=== PATIENT | female | born 1995 | race Two or more races ===

== ENCOUNTER → 2018-07-13 | Outpatient (REF) | payer OTHER ==
[2018-07-13 22:38] LABS: CHLAMYDIA DNA AMPLIFICATION NEGATIVE (NEGATIVE); GC DNA AMPLIFICATION NEGATIVE (NEGATIVE)
== END ==
LOC: M SFHCLERA 18:10
PROVIDERS: ATTEND Physician Assistant
DX: N89.8 Other specified noninflammatory disorders of vagina (principal)

== ENCOUNTER 2018-08-26 16:06 | Emergency (ER) | payer OTHER ==
[~2018-08-26] VITALS: Ht 160 cm; Wt 55.5 kg
[2018-08-26] MEDS ORDERED: PRENTAB29 (16:12)
[2018-08-26] MEDS ORDERED: STOO100C PO (16:32)
[2018-08-26] MEDS ORDERED: ACETAMINOPHEN TAB 650MG DOSE (2X325MG) PO ONE (16:45)
[2018-08-26] MEDS ORDERED: NS 1,000 ML IV ONE (16:45)
[2018-08-26 17:28] LABS: BASO # 0.1 10^3/uL (0.0-0.2); BASO % 0.6 % (0.0-1.0); EOS # 0.3 10^3/uL (0.0-0.50); EOS % 2.7 % (0.0-3.0); HEMATOCRIT 40.7 % (36.0-47.0); HEMOGLOBIN 13.7 g/dl (12.0-15.5); LYMPH # 2.2 10^3/uL (1.5-6.5); LYMPH % 20.3 % (24.0-44.0); MEAN CORPUSCULAR HEMOGLOBIN 30.4 pg (27.0-33.0); MEAN CORPUSCULAR HGB CONC 33.7 g/dl (32.0-36.5); MEAN CORPUSCULAR VOLUME 90.2 fl (80.0-96.0); MONO # 0.5 10^3/uL (0.0-0.8); MONO % 4.3 % (0.0-5.0); NEUTROPHILS # 7.9 10^3/uL (1.8-7.7); NEUTROPHILS % 71.7 % (36.0-66.0); PLATELET COUNT, AUTOMATED 253 10^3/uL (150-450); RED BLOOD COUNT 4.51 10^6/uL (4.00-5.40)
--- NOTE | 2018-08-26 17:33 | REP ---
FIRST TRIMESTER ULTRASOUND: Real-time sonographic evaluation of the gravid uterus performed. There is a single living intrauterine gestation, estimated gestational age 7 weeks 2 days based on a crown rump length of 11 mm. EDC 04/12/2019. heart rate 153 beats per minute. There is no subchorionic hemorrhage. No maternal adnexal region abnormality is seen. Electronically Signed by Jared Dallas MD 08/27/2018 12:53 P
[2018-08-26 18:11] LABS: BLOOD UREA NITROGEN 9 MG/DL (7-18); CALCIUM LEVEL 8.3 MG/DL (8.5-10.1); CARBON DIOXIDE LEVEL 28 MEQ/L (21-32); CHLORIDE LEVEL 106 MEQ/L (98-107); CREATININE FOR GFR 0.52 MG/DL (0.55-1.30); GLOMERULAR FILTRATION RATE > 60.0 (>60); GLUCOSE, FASTING 82 MG/DL (70-100); HCG, SERUM QUANTITATIVE 29797 MIU/ML; POTASSIUM SERUM 3.8 MEQ/L (3.5-5.1); SODIUM LEVEL 138 MEQ/L (136-145)
[2018-08-26 19:06] VITALS: BP 106/63
== END 2018-08-26 19:08 | disposition home or self-care (01) ==
LOC: M ED 16:06
DX: O26.891 Other specified pregnancy related conditions, first trimester (principal); R10.2 Pelvic and perineal pain; O99.511 Diseases of the respiratory system complicating pregnancy, first trimester; J45.909 Unspecified asthma, uncomplicated; Z3A.01 Less than 8 weeks gestation of pregnancy

== ENCOUNTER 2019-04-09 08:13 | Inpatient (IN) | payer OTHER ==
[2019-04-09] VITALS (26 sets, daily range): BP systolic 68–137; BP diastolic 34–82
[~2019-04-09] VITALS: Ht 160 cm; Wt 75.8 kg
[~2019-04-09 08:13] MED LIST: MM S100C PO; PRENTAB29
[2019-04-09] MEDS ORDERED: LR 1,000 ML IV SCH (09:07)
[2019-04-09] MEDS ORDERED: LACTATED RINGER'S 1000 ML IV STA (09:07)
[2019-04-09] MEDS ORDERED: MAPA500T2 PO (09:07)
[2019-04-09] MEDS ORDERED: VALT500T PO (09:07)
--- NOTE | 2019-04-09 09:25 | HPEPDOC ---
Obstetrical History & Physical General Date of Admission Apr 09, 2019 at 08:50 History of Present Illness Alla is a 24yo with SIUP at 40w0d by lmp c/w 8wk u/s presenting with regular, painful ctx since 0300 this morning. After arrival she had LOF, clear, around 0830. Good movement. No vaginal bleeding. No f/c/n/v/SOB/CP. 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: Herpes simplex virus(HSV) Past Medical History Medical History Mild intermittent asthma with prn albuterol use Surgical History: [place] teeth Family History Significant Family History: No pertinent family hx Social History Marital Status: Family situation: Spouse/partner home Psychosocial History: No pertinent psych hx * Smoker: non-smoker Alcohol: Denies Drugs: denies Imunizations Tdap status: current Influenza Status: current Allergies Coded Allergies: No Known Allergies (Unverified , 08/26/18) Medications Scheduled Valacyclovir HCl (Valtrex) 500 Mg Tablet, 500 MG PO DAILY Miscellaneous Medications Acetaminophen (Mapap) 500 Mg Tablet, 1,000 MG PO Physical Examination Physical Examination GENERAL: Alert and oriented times three. ABDOMEN: Gravid and non-tender to touch. 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): external and internal exam reveal NO HSV lesions, pooling of clear fluid, hair observed through cervix Laboratory Data 24H LABS Laboratory Tests 2 04/09/19 09:00: Serology Scanned Report Hepatitis B Testing Pertinent Laboratoy Data Blood Type: O+ RBC Antibody Screen: Negative HIV: Negative Hepatitis B: Negative Hepatitis C: Unknown Rapid Plasma Reagin: Nonreactive Rubella: Immune Varicella: Immune Chlamydia/Gonorrhea: Negative Group B Streptococcus: Negative Glucose Tolerance Test: 123 Anatomy Ultrasound Ultrasound Date: Nov 22, 2018 Placenta Location: Posterior Normal Anatomy: Yes Placenta Previa: No Steroid Therapy Steroid Therapy: No Vaginal Examination Dilation: 4 cm Effacement: 90% Station: -2 Cervical Consistency: Soft Cervical Position: Middle Presentation: Cephalic presentation Assessment Heart Rate (FHR): 150 Variability: Moderate Accelerations: Positive Decelerations: None Tocometer Contractions: Yes Frequency: every 3-7 min. Duration: greater than 60 seconds Strength: palpated as strong Assessment/Plan Assessment Alla is a 24yo with SIUP at 40w0d by lmp c/w 8wk u/s in active labor with SROM, clear, at 0830. Cat I FHRT. Vitals wnl, benign exam. SSE reveals NO HSV lesions and patient has been taking valtrex since 36wk, denies any sx today. SCE 4/90/-2. Ctx q3-4min. Cephalic. GBS negative. course/PMhx significant for: Excessive weight gain (48lb), Hx of genital HSV taking valtrex since 36wk, mild intermittent asthma with prn albuterol use Plan Admit and orient. 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 Diet: clear liquids Group B Streptococcus (GBS) negative Labs and intravenous (IV) per unit protocol. Lactated Ringers (LR): Bolus 1000 mL, then at 125 mL/hr. Anticipate normal spontaneous delivery () Candidate for epidural as desired MD Eloisa Junior Katrina D MD Apr 09, 2019 09:25
[2019-04-09 09:50] LABS: BASO # 0.1 10^3/uL (0.0-0.2); BASO % 0.3 % (0.0-1.0); EOS # 0.1 10^3/uL (0.0-0.5); EOS % 0.5 % (0.0-3.0); HEMATOCRIT 35.5 % (36.0-47.0); HEMOGLOBIN 11.4 g/dl (12.0-15.5); LYMPH # 1.6 10^3/uL (1.5-5.0); LYMPH % 10.6 % (24.0-44.0); MEAN CORPUSCULAR HEMOGLOBIN 28.1 pg (27.0-33.0); MEAN CORPUSCULAR HGB CONC 32.1 g/dl (32.0-36.5); MEAN CORPUSCULAR VOLUME 87.7 fl (80.0-96.0); MONO # 0.7 10^3/uL (0.0-0.8); MONO % 4.9 % (0.0-5.0); NEUTROPHILS # 12.3 10^3/uL (1.5-8.5); NEUTROPHILS % 83.3 % (36.0-66.0); PLATELET COUNT, AUTOMATED 217 10^3/uL (150-450); RED BLOOD COUNT 4.05 10^6/uL (4.00-5.40); WHITE BLOOD COUNT 14.8 10^3/uL (4.0-10.0)
[2019-04-09] MEDS ORDERED: FENTANYL 2MCG/ML ROPIVACAINE 0.2% IN 0.9% NACL 100ML IVBAG As Ordered ONE (09:58)
[2019-04-09] MEDS ORDERED: ePHEDrine SULFATE 25 MG/5 ML(5MG/ML) SYRINGE IV PRN (10:24)
[2019-04-09] MEDS ORDERED: ONDANSETRON 4MG/2ML VIAL (J2405) IV PRN (10:24)
[2019-04-09] MEDS ORDERED: EPIDURAL/PCA KEYS XX PRN (10:24)
[2019-04-09] MEDS ORDERED: EPIDURAL COMMENT XX SCH (10:24)
[2019-04-09] MEDS ORDERED: NALOXONE INJ 0.4 MG/1 ML VIAL (J2310) IV PRN (10:24)
[2019-04-09] MEDS ORDERED: REFRIGERATOR IV KEYS XX PRN (10:24)
[2019-04-09] MEDS ORDERED: diphenhydrAMINE INJ 50MG/ML VIAL (J1200) IV PRN (10:24)
[2019-04-09] MEDS: FENTANYL/ROPIVACAINE/NACL BAG 100 ML EPIDURAL SCH ×2 (10:24→20:24)
[2019-04-09] MEDS ORDERED: ePHEDrine SULFATE 25 MG/5 ML(5MG/ML) SYRINGE As Ordered ONE (11:12)
[2019-04-09] MEDS ORDERED: OXYTOCIN 30 UNITS IN 0.9% NaCl 500ML IV BAG (J2590) As Ordered ONE (12:52)
[2019-04-09] MEDS ORDERED: IBUPROFEN 800 MG TAB PO PRN (13:45)
[2019-04-09] MEDS ORDERED: ACETAMINOPHEN TAB 650MG DOSE (2X325MG) PO PRN (13:45)
[2019-04-09] MEDS ORDERED: IBUPROFEN 600 MG TAB PO PRN (13:45)
[2019-04-09] MEDS ORDERED: RHOGAM 300 MCG (1500 IU) INJ (J2790) IM SCH (13:45)
[2019-04-09] MEDS ORDERED: DOCUSATE SODIUM 100 MG CAP PO PRN (13:45)
[2019-04-09] MEDS ORDERED: ACETAMINOPHEN 500 MG TAB PO PRN (13:45)
[2019-04-09] MEDS ORDERED: DIBUCAINE 1% OINTMENT 30GM TOP PRN (13:45)
--- NOTE | 2019-04-09 13:57 | DNPDOC ---
[facility] Delivery Note Delivery Note DATE OF DELIVERY: 09 Apr 2019 PREDELIVERY DIAGNOSIS: 40 weeks gestation and labor. POST DELIVERY DIAGNOSIS: Delivered. PROCEDURE: Spontaneous vaginal delivery COMMUNITY LIFE DIRECTOR: Dr. Judit Amin MD ANESTHESIA: epidural ESTIMATED BLOOD LOSS: 250 mL. FINDINGS: 9 pound 4 ounce (4190g) male , Score 9/9, nuchal cord times 1 DELIVERY SUMMARY: Alla is a 24yo [id number] s/p uncomplicated at 40w0d after presenting in active labor, delivering at 1312 on 04/09/2019. She presented at 4cm, had SROM soon after presentation, clear, and received an epidural. She reached C/C/+1 without need for augmentation and began pushing. 's head delivered OA, restituted DNONIE. One loose nuchal cord reduced. Left anterior shoulder delivered followed by posterior shoulder and corpus. was vigorous, had spontaneous cry, placed on maternal chest, apgars 9/9, nose and mouth suctioned with bulb suction. After approx 1-2min, cord was clamped x2 and cut by FOB. Cord blood obtained for MBT. With traction on the cord and uterine massage, placenta delivered spontaneously and intact with 3 vessel centrally inserted cord. More uterine massage performed with fundus then firm at u-2cm. Inspection of perineum and vagina revealed a superficial small laceration of the right labia which was repaired with a figure of 8 using 4-0 vicryl with complete hemostasis and total reapproximation. Inspection also revealed a previously healed left labial laceration from her prior delivery with two separate ends, such that her two labia were not symmetric. I inquired about this labial defect to the patient and she noted that it occurred with her last delivery and she was informed that it was "normal" by another physician. I asked if she would like me to repair it at this time since she had pain control with epidural and she stated that she would like it restored to normalcy. I used a scalpel to incise the two edges and then carefully sewed the edges to one another both on the outside and the inside of the labia. There was complete reapproximation and hemostasis. All counts correct x2. Mom and infant were doing well when I left the room. MD Eloisa Junior Katrina D MD Apr 09, 2019 13:57
[2019-04-09] MEDS ORDERED: OXYTOCIN DRIP 30 UNITS in IV 1 EA IV SCH (14:00)
[2019-04-09] MEDS ORDERED: MEASLES,MUMPS,RUBELLA VACCINE INJ (MMR-II) (90707) SC SCH (14:00)
[2019-04-09] MEDS ORDERED: METHYLERGONOVINE MALEATE 0.2 MG/ML VIAL (J2210) IM ONE (17:00)
[2019-04-10 06:00] VITALS: BP 112/72
[2019-04-10] MEDS: FENTANYL/ROPIVACAINE/NACL BAG 100 ML EPIDURAL SCH (06:24)
[2019-04-10] MEDS ORDERED: PRENATAL VITAMINS CHEWABLE TABLET PO SCH (09:00)
[2019-04-10] MEDS ORDERED: IBUP80TA PO (13:12)
--- NOTE | 2019-04-10 13:15 | IPNPDOC ---
Progress Note Date of Service: Apr 10, 2019 Day#: 1 Progress Note PPD 1 SUBJECT: Alla is a 24yo [id number] s/p uncomplicated at 40w0d after presenting in active labor, delivering at 1312 on 04/09/2019, doing well day # 1. She has been ambulating, voiding spontaneously without issue and tolerating regular diet. Breast feeding without issue. Reports lochia is like a normal period. No f/c/n/v/CP/SOB. OBJECTIVE: VITAL SIGNS: Within normal limits, afebrile. Alert and oriented times three. Abdomen: Fundus firm at U-2. Soft, NTTP. Extremities: trace edema BLE and no pain with palpation of calves ASSESSMENT: Alla is a 24yo [id number] s/p uncomplicated at 40w0d after presenting in active labor, delivering at 1312 on 04/09/2019, doing well day # 1. Vitals within normal limits, afebrile, hemodynamically stable with no evidence of infection. PLAN: 1. Discharge to home today. 2. Tylenol and Motrin for pain. 3. Encourage breast feeding and ambulation. 4. Undecided on contraception 5. Routine PP visit in 6 weeks in clinic. 6. Discussed return precautions at length. Dr. Judit Amin MD VS, I&O, 24H, Fishbone Vital Signs/I&O Vital Signs Date Time Temp Pulse Resp B/P (MAP) Pulse Ox O2 Delivery O2 Flow Rate FiO2 04/10/19 06:00 99.1 89 16 112/72 (85) 98 Room Air I&O- Last 24 Hours up to 6 AM 04/10/19 06:00 Output Total 2400 ml Balance -2400 ml Judit Amin MD Apr 10, 2019 13:15
--- NOTE | 2019-04-10 13:17 | DS.PDOC ---
Discharge Summary General Date of Admission Apr 09, 2019 at 08:50 Date of Discharge Apr 10, 2019 Attending Physician: Judit Amin MD Discharge Summary PROCEDURES PERFORMED DURING STAY: spontaneous vaginal delivery ADMITTING DIAGNOSES: 1. Active labor at term DISCHARGE DIAGNOSES: 1. Active labor at term COMPLICATIONS/CHIEF COMPLAINT: LABOR. HISTORY OF PRESENT ILLNESS/HOSPITAL COURSE: Alla is a 24yo [id number] s/p uncomplicated at 40w0d after presenting in active labor, delivering at 1312 on 04/09/2019, doing well day # 1. She has had a benign course. At time of discharge, vitals within normal limits, afebrile, hemodynamically stable with no evidence of infection. She desires discharge home and is meeting all milestones. DISCHARGE MEDICATIONS: Please see below. ALLERGIES: Please see below. PHYSICAL EXAMINATION ON DISCHARGE: VITAL SIGNS: Within normal limits, afebrile. Alert and oriented times three. Abdomen: Fundus firm at U-2. Soft, NTTP. Extremities: trace edema BLE and no pain with palpation of calves ACTIVITY: As tolerated, vaginal rest 6 weeks DIET: regular DISPOSITION: Home DISCHARGE PLAN/INSTRUCTIONS: 1. Discharge to home today. 2. Tylenol and Motrin for pain. 3. Encourage breast feeding and ambulation. 4. Undecided on contraception 5. Routine PP visit in 6 weeks in clinic. 6. Discussed return precautions at length. DISCHARGE CONDITION: Stable TIME SPENT ON DISCHARGE: Greater than [address] Judit Amin MD Vital Signs/I&Os Vital Signs Date Time Temp Pulse Resp B/P (MAP) Pulse Ox O2 Delivery O2 Flow Rate FiO2 04/10/19 06:00 99.1 89 16 112/72 (85) 98 Room Air I&O- Last 24 Hours up to 6 AM 04/10/19 06:00 Output Total 2400 ml Balance -2400 ml Discharge Medications Scheduled PRN Ibuprofen (Ibuprofen) 800 Mg Tablet, 800 MG PO Q8HP PRN for PAIN LEVEL 6-10 Miscellaneous Medications Acetaminophen (Mapap) 500 Mg Tablet, 1,000 MG PO, (Reported) Allergies Coded Allergies: No Known Allergies (Unverified , 04/09/19) Judit Amin MD Apr 10, 2019 13:17
== END 2019-04-10 18:50 | disposition home or self-care (01) | DRG 807 ==
LOC: M LDO 08:13 → M LDI 08:50 → M OBS 16:47
PROVIDERS: ADMIT Obstetrics & Gynecology; ATTEND Obstetrics & Gynecology
PROC: 10E0XZZ Delivery of Products of Conception, External Approach (ICD-10-PCS; principal; 2019-04-09)
PROC: 0HQ9XZZ Repair Perineum Skin, External Approach (ICD-10-PCS; 2019-04-09)
DX: O99.52 Diseases of the respiratory system complicating childbirth (principal); Z37.0 Single live birth; J45.20 Mild intermittent asthma, uncomplicated; Z3A.40 40 weeks gestation of pregnancy; O69.81X0 Labor and delivery complicated by cord around neck, without compression, not applicable or unspecified; O70.0 First degree perineal laceration during delivery

== ENCOUNTER → 2019-07-07 | Outpatient (REF) | payer OTHER ==
[~2019-07-07] MED LIST changes: +IBUP80TA PO; +MAPA500T2 PO; +VALT500T PO
[2019-07-08 01:15] LABS: CHLAMYDIA DNA AMPLIFICATION NEGATIVE (NEGATIVE); GC DNA AMPLIFICATION NEGATIVE (NEGATIVE)
== END ==
LOC: M SFHCLERA 17:39
PROVIDERS: ATTEND Nurse Practitioner Family
DX: N89.8 Other specified noninflammatory disorders of vagina (principal)
CPT/HCPCS: 81002; 81025; 87070; 87077; 87086; 87186; 87661; G0463

== ENCOUNTER 2021-08-05 11:18 | Day surgery (SDC) | payer OTHER ==
[~2021-08-05] VITALS: Ht 160 cm; Wt 73.0 kg
[~2021-08-05 11:18] MED LIST changes: +CETI-24 PO; +ETON1VAG3 VG; +NS 1,000 ML IV ONE; +OMEP40CA5 PO
[2021-08-05 13:40] VITALS: BP 108/69
== END 2021-08-05 13:42 | disposition home or self-care (01) ==
LOC: M OPP 11:18
PROVIDERS: ATTEND Internal Medicine Gastroenterology
DX: K22.89 Other specified disease of esophagus (principal); K21.9 Gastro-esophageal reflux disease without esophagitis; R12 Heartburn